=== PATIENT | male | born 1940 | race Caucasian/White ===

== ENCOUNTER 2016-12-06 14:28 | Outpatient (CLI) | payer MEDICARE, OTHER | END 2016-12-06 14:29 | disposition home or self-care (01) | DX: G47.33 Obstructive sleep apnea (adult) (pediatric) (principal) | CPT/HCPCS: 99213; G0463 ==

== ENCOUNTER 2016-12-09 09:19 | Outpatient (CLI) | payer MEDICARE, OTHER | END 2016-12-09 09:20 | disposition home or self-care (01) | DX: M17.11 Unilateral primary osteoarthritis, right knee (principal); M25.461 Effusion, right knee; M25.561 Pain in right knee ==

== ENCOUNTER 2017-01-03 15:23 | Outpatient (CLI) | payer MEDICARE, OTHER | END 2017-01-03 15:24 | disposition home or self-care (01) | DX: G47.33 Obstructive sleep apnea (adult) (pediatric) (principal) | CPT/HCPCS: 99213; G0463 ==

== ENCOUNTER 2017-09-23 12:30 | Outpatient (CLI) | payer MEDICARE, OTHER | END 2017-09-23 12:31 | disposition home or self-care (01) | LOC: LAB 12:30 | DX: M17.11 Unilateral primary osteoarthritis, right knee (principal) | CPT/HCPCS: 36415; 80178 ==

== ENCOUNTER 2018-10-23 09:05 | Outpatient (CLI) | payer MEDICARE, OTHER ==
--- NOTE | 2018-10-23 10:01 | XRAY Report ---
Reason: PAIN OVER 5TH METARSAL R FOOT Procedure Date: 10/23/2018 Accession Number: [id number] / [id number] Procedure: XR - Foot 3 View RT CPT Code: FULL RESULT: EXAM: RIGHT FOOT RADIOGRAPHY EXAM DATE: 10/23/2018 09:23 AM. CLINICAL HISTORY: Pain over fifth metatarsal of the right foot. COMPARISON: None. TECHNIQUE: 3 views. FINDINGS: Bones: There is suboptimal evaluation of the phalanges, particularly of the third through fifth toes, secondary to flexion at the interphalangeal joints. No evidence for acute fracture elsewhere. There is suggestion of a small osseous erosion along the lateral aspect of the fifth metatarsal head. It has well-circumscribed, sclerotic margin. Small posterior and plantar calcaneal spurs. Joints: No dislocation or subluxation. Minimal spurring present of the first metatarsophalangeal joint. Soft Tissues: Suggestion of slight soft tissue swelling over the fifth metatarsophalangeal joint. IMPRESSION: 1. No acute fracture or malalignment within limitations of this examination (described above). 2. Suggestion of small osseous erosion of the fifth metatarsal head and mild overlying soft tissue swelling. This could indicate sequela of crystalline arthropathy. 3. Minimal DJD at the first metatarsophalangeal joint. RADIA
== END 2018-10-23 09:06 | disposition home or self-care (01) ==
LOC: DI 09:05
PROVIDERS: ATTEND Podiatrist
DX: M19.071 Primary osteoarthritis, right ankle and foot (principal)

== ENCOUNTER 2019-03-05 09:57 | Outpatient (CLI) | payer MEDICARE, OTHER ==
--- NOTE | 2019-03-05 11:18 | XRAY Report ---
Reason: R SHOULDER PAIN, DECREASED RANGE OF MOTION Procedure Date: 03/05/2019 Accession Number: [id number] / [id number] Procedure: XR - Shoulder 3 View RT CPT Code: FULL RESULT: EXAM: RIGHT SHOULDER RADIOGRAPHY EXAM DATE: 03/05/2019 10:11 AM. CLINICAL HISTORY: Right shoulder pain, decreased range of motion. COMPARISON: None. TECHNIQUE: 3 views. FINDINGS: Bones: Normal. No fracture or bone lesion. Joints: The glenohumeral and acromioclavicular joints are normally located with mild degenerative changes of the AC joint. Soft tissues: The visualized hemithorax is unremarkable. No soft tissue swelling. IMPRESSION: Mild AC joint degenerative changes. RADIA
== END 2019-03-05 09:58 | disposition home or self-care (01) ==
LOC: DI 09:57
PROVIDERS: ATTEND Physician Assistant Medical
DX: M19.011 Primary osteoarthritis, right shoulder (principal)

== ENCOUNTER 2019-05-29 08:47 | Outpatient (CLI) | payer MEDICARE, OTHER ==
--- NOTE | 2019-05-29 12:55 | MRI Report ---
Reason: PAIN IN RIGHT SHOULDER Procedure Date: 05/29/2019 Accession Number: [id number] / [id number] Procedure: MRI - Shoulder RT W/O CPT Code: FULL RESULT: EXAM: RIGHT SHOULDER MRI WITHOUT CONTRAST EXAM DATE: 05/29/2019 09:49 AM. CLINICAL HISTORY: Pain in right shoulder. COMPARISON: SHOULDER 3 VIEW RT 03/05/2019 10:01 AM. TECHNIQUE: Multiplanar, multisequence T1-weighted and fluid-sensitive sequences of the shoulder without contrast. Other: None. FINDINGS: Acromioclavicular Region: The acromion is type II. 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 The coracoacromial and coracoclavicular ligaments are intact. Generous amount of bursal fluid is present. Glenohumeral Region: No subluxation. No effusion or loose bodies. The articular cartilage is unremarkable. The glenohumeral ligaments and joint capsule are unremarkable. Bone Marrow: No fracture, marrow edema or bone lesions. Labrum: The labrum is unremarkable on this nonarthrographic study. Musculature/Rotator Cuff: Supraspinatus tendon is abnormally thickened. There also is a high-grade partial-thickness tear along the bursal surface involving about 75% of the tendon thickness on series 701 image 5. Infraspinatus likewise show some thickening and increased T2 signal. Subscapularis and teres minor were normal. Some edematous changes are seen in the proximal supraspinatus musculotendinous junction. Biceps Tendon: The long head of the biceps tendon and biceps jason are intact. Other: The subcutaneous tissues are unremarkable. IMPRESSION: 1. Type II unipartite undersurface osseous acromion shape. 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 Generous amount of bursal fluid also is present. 2. Supraspinatus tendon shows moderate to severe tendinitis, partial thickness high-grade bursal-sided tear is present involving about 75% of the tendon thickness. Infraspinatus shows mild tendinitis. Subscapularis and teres minor have a normal appearance. 3. Labrum, capsular structures of the long head of biceps are unremarkable. RADIA
== END 2019-05-29 08:48 | disposition home or self-care (01) ==
LOC: DI 08:47
PROVIDERS: ATTEND Orthopaedic Surgery Sports Medicine
DX: M19.011 Primary osteoarthritis, right shoulder (principal); M75.101 Unspecified rotator cuff tear or rupture of right shoulder, not specified as traumatic; M75.81 Other shoulder lesions, right shoulder

== ENCOUNTER 2019-09-01 13:56 | Outpatient (CLI) | payer MEDICARE, OTHER | END 2019-09-01 13:57 | disposition short-term general hospital (02) | LOC: EMS 13:56 | PROVIDERS: ATTEND Surgery | DX: M25.551 Pain in right hip (principal); Z96.641 Presence of right artificial hip joint | CPT/HCPCS: A0425; A0427 ==

== ENCOUNTER 2020-10-27 15:24 | Outpatient (CLI) | payer MEDICARE, OTHER ==
--- NOTE | 2020-10-27 17:14 | Ultrasound Report ---
PROCEDURE: Bladder INDICATIONS: URINARY INCONTINENCE TECHNIQUE: Real-time scanning was performed of the bladder, with image documentation. COMPARISON: CT abdomen/pelvis 12/04/2013 FINDINGS: Bladder: Pre-void bladder volume is 355 mL. Post-void residual is 286 mL. Pre-void images demonstr ate no intraluminal masses or stones. On pre-void images, bilateral ureteral jets are noted with col or Doppler interrogation. (Of note, ureteral jets may not be detectable in up to 25% of cases due to insufficient differences in specific gravity between ureteral and bladder urine). The prostate fredi ures 3.0 x 4.0 x 5.1 cm. Miscellaneous: No free pelvic fluid. IMPRESSION: 1. Post void residual volume is 286 mL. 2. Mild prostatomegaly. Reviewed by: Trung Pryor MD on 10/27/2020 5:12 PM PST Approved by: Trung Pryor MD on 10/27/2020 5:12 PM PST Station ID: [id number]
== END 2020-10-27 15:25 | disposition home or self-care (01) ==
LOC: DI 15:24
PROVIDERS: ATTEND Internal Medicine
DX: N40.1 Benign prostatic hyperplasia with lower urinary tract symptoms (principal); R32 Unspecified urinary incontinence